=== PATIENT | male | born 1965 | race Caucasian/White ===

== ENCOUNTER 2017-02-01 18:29 | Inpatient (IN) | payer OTHER ==
[~2017-02-01] VITALS: Ht 167.6 cm; Wt 59.0 kg
[2017-02-01 19:10] VITALS: BP 130/83
--- NOTE | 2017-02-01 21:16 | NUR ---
PT TAKEN TO BED 5
[2017-02-01] MEDS ORDERED: NACL 0.9% 1,000 ML IV ONE (21:20)
--- NOTE | 2017-02-01 21:22 | NUR ---
Dr. Franco evaluating patient at bedside.
--- NOTE | 2017-02-01 21:38 | NUR ---
X-Ray at bedside.
--- NOTE | 2017-02-01 22:00 | NUR ---
PATIENT PRESENTS TO ED WITH SORE THROAT X 3 MONTHS PT IS KNOWN DIABETIC BUT DOES NOT TAKE HIS MEDS REGULARLY PT DENIES N/V/D; AAOX4 WITH EVEN AND STEADY GAIT; LUNGS CLEAR BUT PT HAS COUGH; HR EVEN AND REGULAR; PT DENIES ANY FEVER, CP, SOB, OR AT THIS TIME; PATIENT STATES PAIN OF 8/10 AT THIS TIME; VSS; PATIENT POSITIONED FOR COMFORT; HOB ELEVATED; BEDRAILS UP X2; BED DOWN. ER MD MADE AWARE OF PT STATUS.
[2017-02-01 22:06] LABS: BASOPHILS # (AUTO) 0.1 K/uL (0.00-0.22); BASOPHILS % (AUTO) 0.5 % (0.0-2.0); EOSINOPHILS # (AUTO) 0.2 K/uL (0-0.4); EOSINOPHILS % (AUTO) 1.8 % (0.0-4.0); HEMATOCRIT 35.4 % (36-52); HEMOGLOBIN 11.6 g/dL (12.0-18.0); LYMPHOCYTES % (AUTO) 9.4 % (20.5-51.1); MEAN CORPUSCULAR HEMOGLOBIN 28 pg (27-31); MEAN CORPUSCULAR HGB CONC 33 g/dL (33-37); MEAN CORPUSCULAR VOLUME 84 fL (80-94); MONOCYTES # (AUTO) 0.6 K/uL (0.8-1.0); MONOCYTES % (AUTO) 5.5 % (1.7-9.3); NEUTROPHILS # (AUTO) 8.9 K/uL (1.8-7.7); NEUTROPHILS % (AUTO) 82.8 % (42.2-75.2); PLATELET COUNT (AUTO) 334 K/uL (140-450); RED BLOOD CELL COUNT(AUTO) 4.21 MIL/uL (4.20-6.10); RED CELL DISTRIBUTION WIDTH 12.8 % (11.6-13.7); WHITE BLOOD COUNT (AUTO) 10.8 K/uL (4.8-10.8)
[2017-02-01 22:26] LABS: ALBUMIN 2.8 g/dL (3.4-5.0); ANION GAP 8.5 (8-16); CARBON DIOXIDE 29.7 mmol/L (21-32); CREATININE 1.2 mg/dL (0.6-1.3); POTASSIUM 5.2 mmol/L (3.5-5.1); TOTAL BILIRUBIN 0.4 mg/dL (0.0-1.0); TOTAL PROTEIN, SERUM 6.8 g/dL (6.4-8.2)
[2017-02-01 22:35] LABS: PARTIAL THROMBOPLASTIN TIME 23.2 secs (22-35.6)
[2017-02-01 22:39] LABS: CALCIUM 8.7 mg/dL (8.5-10.1)
--- NOTE | 2017-02-01 22:50 | NUR ---
CRITICAL LABS. DR FRIEND NOTIFIED. NEW ORDERS. PT WILL BE ADMITTED.
[2017-02-01] MEDS ORDERED: INSULIN HUMAN REGULAR 100 UNITS/ML 10 ML VIAL IVP ONE (23:00)
[2017-02-01] MEDS ORDERED: NACL 0.9% 2,000 ML IV ONE (23:00)
--- NOTE | 2017-02-01 23:30 | NUR ---
SLEEPING AT THIS TIME. NO S/S OF ANY DISCOMFORT NOTED. Addendum: 02/03/17 at 0000 by Gita Best RN CANCEL ABOVE NOTES. WRONG ENTRY.
[2017-02-01] MEDS: NACL 0.9% 1,000 ML IV SCH (23:33)
[2017-02-01] MEDS ORDERED: ONDANSETRON 4 MG/2 ML VIAL IVP PRN (23:35)
[2017-02-01] MEDS ORDERED: ACETAMINOPHEN 325 MG TAB PO PRN (23:35)
[2017-02-01] MEDS ORDERED: HYDROcodone/APAP 5/325 MG 1 TAB TAB PO PRN (23:35)
[2017-02-01] MEDS ORDERED: DEXTROSE 50% 50 ML SYR IVP PRN (23:35)
[2017-02-01] MEDS ORDERED: LORazepam 2 MG/ML VIAL IVP PRN (23:35)
[2017-02-01] MEDS ORDERED: hydrALAZINE 20 MG/ML VIAL IVP PRN (23:40)
--- NOTE | 2017-02-02 00:39 | NUR ---
Patient will be admitted to care of DR HANEY. Admited to M/S. Will go to room 119b. Belongings list completed. Report to EMI LEWIS.
[2017-02-02 01:00] VITALS: BP 170/100
--- NOTE | 2017-02-02 01:00 | NUR ---
RECEIVED PT FROM ER VIA WHEELCHAIR, PT CINDY AAOX4 AMBULATORY IV ON RT AC INFUSING WELL DENIES ANYPAIN OR DISCOMFORT, BILATERAL LOWER EXTREMITIES WITH DISCOLORATION AND DRY OLD SCABS PT IS ;ORIENTED TOTHE FLOOR CALL LLIGHT WITHIN REACH
[2017-02-02] MEDS ORDERED: PNEUMOCOCCAL VACCINE 23 MCG/0.5 ML VIAL IMVAC PRN (01:15)
--- NOTE | 2017-02-02 04:00 | NUR ---
SPONGE BATH GIVEN LINEN CHANGED WILL BE MONITORING HIGH BP ON TELMETRY SR
[2017-02-02] MEDS ORDERED: cloNIDine 0.1 MG TAB PO PRN (05:05)
[2017-02-02 05:07] VITALS: BP 165/98
[2017-02-02 05:21] LABS: BASOPHILS # (AUTO) 0.1 K/uL (0.00-0.22); BASOPHILS % (AUTO) 0.5 % (0.0-2.0); EOSINOPHILS # (AUTO) 0.2 K/uL (0-0.4); EOSINOPHILS % (AUTO) 1.4 % (0.0-4.0); HEMATOCRIT 31.7 % (36-52); HEMOGLOBIN 10.2 g/dL (12.0-18.0); LYMPHOCYTES # (AUTO) 1.7 K/uL (2.0-11.5); LYMPHOCYTES % (AUTO) 14.3 % (20.5-51.1); MEAN CORPUSCULAR HEMOGLOBIN 27 pg (27-31); MEAN CORPUSCULAR HGB CONC 32 g/dL (33-37); MEAN CORPUSCULAR VOLUME 84 fL (80-94); MONOCYTES # (AUTO) 0.7 K/uL (0.8-1.0); MONOCYTES % (AUTO) 5.8 % (1.7-9.3); NEUTROPHILS # (AUTO) 9.1 K/uL (1.8-7.7); PLATELET COUNT (AUTO) 335 K/uL (140-450); RED BLOOD CELL COUNT(AUTO) 3.79 MIL/uL (4.20-6.10); WHITE BLOOD COUNT (AUTO) 11.8 K/uL (4.8-10.8)
[2017-02-02 05:42] LABS: ALBUMIN 2.3 g/dL (3.4-5.0); ANION GAP 9.6 (8-16); CALCIUM 7.8 mg/dL (8.5-10.1); CARBON DIOXIDE 28.8 mmol/L (21-32); CREATININE 0.8 mg/dL (0.6-1.3); MAGNESIUM 1.8 mg/dL (1.8-2.4); POTASSIUM 3.4 mmol/L (3.5-5.1); TOTAL BILIRUBIN 0.3 mg/dL (0.0-1.0); TOTAL PROTEIN, SERUM 5.8 g/dL (6.4-8.2)
[2017-02-02 06:16] VITALS: BP 148/83
[2017-02-02] MEDS: BLOOD GLUCOSE MONITORING 1 DEV DEV FS SCH ×4 (06:36→20:59)
[2017-02-02] MEDS: INSULIN LISPRO SLIDING SCALE 100 UNITS/ML VIAL SUBQ PRN ×4 (06:37→21:00)
--- NOTE | 2017-02-02 06:45 | NUR ---
BLOOD SUGAR TEST 361 WAS COVERAGE WITH HUMALOG SUBQ 10 UNITS ON LEFT ARM
--- NOTE | 2017-02-02 07:30 | NUR ---
REPORT RECEIVED FROM TAIL EDGER, CARE ASSUMED AT THIS TIME, PT SLEEPING QUIETLY, AROUSES TO VOICE, RESP EVEN UNLABORED ON ROOM AIR IN NAD, SKIN WARM DRY COLOR WNL, IVF INFUSING SITE CLEAR, PLAN OF CARE REVIEWED, PT DENIES ANY PAIN OR DISCOMFORT, PT ON OFFICE WORKER, CALL VOGEL WITHIN REACH, BED LOCKED IN LOW POSTIION, SIDE RAILS UP X2, NO IMMEDIATE NEEDS IDENTIFIED AT THIS TIME, WILL CONTINUE TO MONITOR.
[2017-02-02 08:00] VITALS: BP 121/78
[2017-02-02] MEDS ORDERED: ENOXAPARIN 40 MG/0.4 ML SYR SUBQ SCH (09:00)
[2017-02-02] MEDS: ENOXAPARIN 40 MG/0.4 ML SYR SUBQ SCH (09:09)
--- NOTE | 2017-02-02 09:22 | NUR ---
CM NOTE INITIAL REVIEW SENT TO [facility] FAX# [phone] PH# FEBRUARY [phone] VIRGIE [phone]
[2017-02-02] MEDS: NACL 0.9% 1,000 ML IV SCH ×2 (09:33→19:33)
--- NOTE | 2017-02-02 09:45 | NUR ---
PT RESTING QUIETLY IN NAD, RESP EVEN UNLABORED, IVF CONTINUES, SITE CLEAR, EXTRA BLANKET PROVIDED PER PT REQUEST, DENIES OTHER NEEDS AT THIS TIME, CALL VOGEL WITHIN REACH, SIDE RAILS UP X2, BED LOCKED IN LOW POSITION, WILL CONTINUE TO MONITOR.
--- NOTE | 2017-02-02 09:59 | NUR ---
PATIENT HAS BEEN SCREENED AND CATEGORIZED MODERATE NUTRITION RISK. PATIENT WILL BE SEEN WITHIN 3-5 DAYS OF ADMISSION. 02/04/17-02/06/[address]
[2017-02-02 12:00] VITALS: BP 150/98
--- NOTE | 2017-02-02 12:45 | NUR ---
PT SITTING UP IN BED IN NAD, EATING LUNCH, DENIES PAIN OR DISCOMFORT, RESP EVEN UNLABORED, SPEAKING TO FRIEND AT BEDSIDE IN NAD, QUESTIONS REGARDING PLAN OF CARE ASKED AND ANSWERED, PT VERBALIZED FULL UNDERSTANDING, IVF INFUSING, SITE CLEAR, PT DENIES ANY OTHER IMMEDIATE NEEDS, CALL VOGEL AT BEDSIDE, BED LOCKED IN LOW POSITION, WILL CONTINUE TO MONITOR.
--- NOTE | 2017-02-02 15:04 | NUR ---
PT SLEEPING QUIETLY IN NAD, RESP EVEN UNLABORED SKIN WARM DRY COLOR WNL, AROUSES EASILY WITH VOICE, DIABETES EDUCATION HANDOUT PRINTED IN [place] AND GIVEN TO PT FOR RESOURCES, CALL VOGEL WITHIN REACH, SIDE RAILS UP X2, BED LOCKED IN LOW POSITION, WILL CONTINUE TO MONITOR.
[2017-02-02 16:00] VITALS: BP 145/94
[2017-02-02] MEDS: metFORMIN 850 MG TAB PO SCH (17:01)
--- NOTE | 2017-02-02 17:42 | NUR ---
PT VOMITED X1 SMALL EMESIS, PT STATES HE FEELS OK NOW, OFFERED ZOFRAN BUT PT DECLINED AT THIS TIME, WILL CONTINUE TO MONITOR.
--- NOTE | 2017-02-02 19:22 | NUR ---
REPORT GIVEN TO [employer], PT IN STABLE CONDITION.
--- NOTE | 2017-02-02 19:30 | NUR ---
RECEIVED PT IN STABLE CONDITION FROM AM NURSE. AWAKE, ALERT AND ORIENTED X4. ALBANIAN SPEAKING. MED SURG PT. AMBULATORY TO BR. WITH IVF INFUSING WELL ON THE RT AC#20. CLEAR AND PATENT. PLAN OF CARE DISCUSSED AND VERBALIZED UNDERSTANDING. CALL LIGHT PLACED WITHIN EASY REACH. WILL CONTINUE TO MONITOR.
--- NOTE | 2017-02-02 21:00 | NUR ---
BLOOD SUGAR WAS CHECKED RESULT 290. INSULIN COVERAGE GIVEN SUBQ. PROVIDED WITH HS SNACK.
--- NOTE | 2017-02-02 23:00 | NUR ---
SLEEPING WELL. NO S/S OF ANY DISCOMFORT NOTED.
[2017-02-03] MEDS: NACL 0.9% 1,000 ML IV SCH ×4 (00:24→22:07)
[2017-02-03 00:29] VITALS: BP 128/74
--- NOTE | 2017-02-03 01:30 | NUR ---
MADE ROUNDS. PT IS ASLEEP. NO S/S OF ANY DISCOMFORT NOTED.
--- NOTE | 2017-02-03 05:00 | NUR ---
SLEEPING AT THIS TIME. NO S/S OF ANY DISCOMFORT NOTED.
[2017-02-03] MEDS: BLOOD GLUCOSE MONITORING 1 DEV DEV FS SCH ×4 (06:01→20:42)
[2017-02-03] MEDS: INSULIN LISPRO SLIDING SCALE 100 UNITS/ML VIAL SUBQ PRN ×4 (06:02→20:49)
[2017-02-03 06:04] LABS: BASOPHILS % (AUTO) 0.4 % (0.0-2.0); EOSINOPHILS # (AUTO) 0.2 K/uL (0-0.4); EOSINOPHILS % (AUTO) 2.1 % (0.0-4.0); HEMATOCRIT 33.9 % (36-52); LYMPHOCYTES # (AUTO) 1.6 K/uL (2.0-11.5); LYMPHOCYTES % (AUTO) 17.7 % (20.5-51.1); MEAN CORPUSCULAR HEMOGLOBIN 27 pg (27-31); MEAN CORPUSCULAR HGB CONC 32 g/dL (33-37); MEAN CORPUSCULAR VOLUME 83 fL (80-94); MONOCYTES # (AUTO) 0.3 K/uL (0.8-1.0); MONOCYTES % (AUTO) 3.4 % (1.7-9.3); NEUTROPHILS # (AUTO) 7.1 K/uL (1.8-7.7); NEUTROPHILS % (AUTO) 76.4 % (42.2-75.2); PLATELET COUNT (AUTO) 327 K/uL (140-450); RED BLOOD CELL COUNT(AUTO) 4.06 MIL/uL (4.20-6.10); RED CELL DISTRIBUTION WIDTH 13.5 % (11.6-13.7); WHITE BLOOD COUNT (AUTO) 9.2 K/uL (4.8-10.8)
--- NOTE | 2017-02-03 07:20 | NUR ---
ENDORSED PT IN STABLE CONDITION TO AM NURSE.
[2017-02-03 07:21] LABS: CALCIUM 8.2 mg/dL (8.5-10.1); CARBON DIOXIDE 27.3 mmol/L (21-32); POTASSIUM 4.3 mmol/L (3.5-5.1)
--- NOTE | 2017-02-03 07:21 | NUR ---
PT AWAKE AND ALERT, NO SIGNS OF ACUTE DISTRESS, BREATHING EVEN AND UNLABORED BILATERALLY ON ROOM AIR, BOWEL SOUNDS ACTIVE IN ALL 4 QUADRANTS, AMBULATORY WITH BRP, SKIN INTACT, YAKUT SPEAKING, IV PATENT WITHOUT REDNESS, NO COMPLAINT OF PAIN, CALL LIGHT WITHIN REACH, BED IN LOW POSITION WITH BILATERAL HALF SIDE RAILS UP.
[2017-02-03 07:22] LABS: CREATININE 0.8 mg/dL (0.6-1.3)
[2017-02-03 08:00] VITALS: BP 157/96
--- NOTE | 2017-02-03 08:47 | NUR ---
CM NOTE CONCURRENT REVIEW SENT TO [facility] FAX# [phone] PH# FEBRUARY [phone]
[2017-02-03] MEDS: AZITHROMYCIN 250 MG TAB PO SCH (09:31)
[2017-02-03] MEDS: LISINOPRIL 10 MG TAB PO SCH (09:31)
[2017-02-03] MEDS: metFORMIN 850 MG TAB PO SCH ×2 (09:31→16:42)
[2017-02-03] MEDS: ENOXAPARIN 40 MG/0.4 ML SYR SUBQ SCH (09:32)
--- NOTE | 2017-02-03 15:10 | NUR ---
LUCY PATEL SPOKE WITH THE PATIENT BEDSIDE WITH NURSE CHARLES TO TRANSLATE AND HE SAID HE DOES NOT HAVE A PCP. SPOKE WITH LUCY [facility] PH# [phone] AND SHE SAID THIS PATIENT IS ASSIGNED TO DR. BECCA MONTANO # [phone]. CALLED THE # [phone] TO SCHEDULE PATIENT FOR OUTPATIENT APPOINTMENT AND SPOKE WITH PERRI WHO SAID THAT BECAUSE THIS IS A NEW PATIENT, THE EARLIEST DATE THIS PATIENT CAN BE SEEN IS ON MARCH 23 3PM AT THE CLINIC IN [address] [place] [address]. GAVE THE INFORMATION TO THE PATIENT. LUCY [facility] AWARE.
--- NOTE | 2017-02-03 15:54 | NUR ---
SS NOTE: I RECEIVED A CALL FROM [facility] CM [facility]. SHE STATED THAT SHE WAS ABLE TO OBTAIN A SOONER APPT FOR PT WITH DR. BECCA MONTANO P: [phone] FOR 02/17/17 AT 0930 AT [address] [facility]. SHE ALSO STATED THAT PT WILL NEED TO BRING HIS SOCIAL SECURITY CARD AND D.C INSTRUCTIONS. I SPOKE WITH PT BEDSIDE WITH AIME POLLARD TO TRANSLATE AND GAVE THE PRINTED INFORMATION TO THE PATIENT.
[2017-02-03 16:00] VITALS: BP 122/77
--- NOTE | 2017-02-03 19:23 | NUR ---
PT AWAKE AND ALERT, NO SIGNS OF ACUTE DISTRESS. BED IN LOW POSITION WITH BILATERAL HALF SIDE RAILS UP, CALL LIGHT WITHIN REACH. GAVE REPORT TO PREPARER RN FOR CONTINUITY OF CARE.
--- NOTE | 2017-02-03 19:24 | NUR ---
RECEIVED REPORT, ASSUMED CARE. PT AAOX4. RESPIRATION EVEN AND UNLABORED. NO C/O PAIN AT THIS TIME. NO S/S OF RESPIRATORY DISTRESS AT THIS TIME. IV ACCESS TO RT AC #22, INFUSING NS @ 100ML/HR. NO S/S OF INFILTRATION. CALL LIGHT WITHIN EASY REACH. WILL CONTINUE TO MONITOR.
--- NOTE | 2017-02-03 22:45 | NUR ---
ROUNDS MADE, PT SOUND ASLEEP AT THIS TIME,EASILY AROUSABLE. REGULAR BREATHING PATTERN,NO S/S OF RESP DISTRESS. ALL NEEDS ANTICIPATED. CALL LIGHT KEPT WITHIN EASY REACH. WILL CONTINUE TO MONITOR.
[2017-02-04] VITALS: BP 112/71
--- NOTE | 2017-02-04 00:30 | NUR ---
PT REMAINS ASLEEP WITH PERIODS OF AWAKENING, GOING TO THE BATHROO. REGULAR BREATHING PATTERN,NO S/S OF RESP DISTRESS. ALL NEEDS ANTICIPATED. CALL LIGHT KEPT WITHIN EASY REACH. WILL CONTINUE TO MONITOR.
--- NOTE | 2017-02-04 03:00 | NUR ---
PT AWAKE AT THIS TIME, REQUESTS FOR SNACKS AND COFFEE. EXPLAINED TO PT RE: COMPLIANCE WITH HIS DIET DUE TO UNCONTROLLED DIABETES. EXPLAINED RISKS/BENEFITS, PT VERBALIZED UNDERSTANDING, HOWEVER, HE'S IRRITABLE AND UPSET. WILL CONTINUE TO EDUCATE PT RE: COMPLIANCE WITH DIET, TX PLAN.
[2017-02-04] MEDS: BLOOD GLUCOSE MONITORING 1 DEV DEV FS SCH (06:40)
[2017-02-04] MEDS: INSULIN LISPRO SLIDING SCALE 100 UNITS/ML VIAL SUBQ PRN (06:41)
[2017-02-04] MEDS ORDERED: LISI10TA11 PO (07:25)
[2017-02-04] MEDS ORDERED: METF850T PO (07:25)
[2017-02-04] MEDS ORDERED: SITA50TA3 PO (07:25)
--- NOTE | 2017-02-04 07:25 | NUR ---
PT AWAKE, VERBALLY RESPONSIVE. NO C/O PAIN AT THIS TIME. ENDORSED TO NEXT SHIFT FOR CONTINUITY OF CARE. PT IN STABLE CONDITION.
--- NOTE | 2017-02-04 07:26 | NUR ---
RECEIVED REPORT FROM THE FLASK CARRIER NURSE AT BEDSIDE FOR CONTINUITY OF CARE. PT IS AWAKE AND ALERT. INTRODUCED MYSELF AND UPDATED THE BOARD. PT HAS HIS IV ON R AC 20G, NS INFUSING AT 100ML. NO SIGNS OF DISTRESS. DENIES SORE THROAT, OR ANY PAIN. PER MD, PT IS TO BE DISCHARGED TODAY. WILL START DISCHARGE PROCESS.
--- NOTE | 2017-02-04 08:00 | NUR ---
PT IS EATING BREAKFAST. IV PUMP BEEPING. I D/C'D HIS IV, SO THAT HE CAN EAT. PT SAID ONCE HE IS DONE WITH BREAKFAST HE WOULD LIKE TO LEAVE. ASKED PT ABOUT HIS RIDE. HE DOESN'T HAVE ONE. HE WILL TAKE A BUS HOME. WILL GET HIS DC PAPERS READY.
[2017-02-04] MEDS: AZITHROMYCIN 250 MG TAB PO SCH (08:36)
[2017-02-04] MEDS: LISINOPRIL 10 MG TAB PO SCH (08:36)
[2017-02-04] MEDS: metFORMIN 850 MG TAB PO SCH (08:36)
[2017-02-04] MEDS: ENOXAPARIN 40 MG/0.4 ML SYR SUBQ SCH (08:37)
--- NOTE | 2017-02-04 08:49 | NUR ---
ADMINISTERED MORNING MEDS. PT TOLERATED WELL. GAVE PT D/C INSTRUCTIONS. ANSWERED ALL QUESTIONS. PT SIGNED ALL APPROPRIATE DOC. REMOVED IV, CANNULA INTACT. NO BLEEDING NOTED. REMOVED ALL ID BANDS. EDUCATED PT ABOUT THE IMPORTANCE OF FOLLOWING UP WITH MD, START TAKING THE RX DIRECTED. PT VERBALIZED UNDERSTANDING. PT WILL GET DRESSED AND GATHER HIS PERSONAL BELONGINGS. HE WILL LET US KNOW WHEN HE IS READY TO LEAVE. WE WILL WHEEL HIM OUT.
--- NOTE | 2017-02-04 09:35 | NUR ---
WHEELED PT OUT IN A WHEELCHAIR. PT'S AND BABY ACCOMPANIED PT. PERSONAL BELONGINGS WITH PT. PT IS IN STABLE CONDITION.
--- NOTE | 2017-02-04 13:48 | NUR ---
CM NOTE CONCURRENT REVIEW SENT TO [facility] FAX# [phone] PH# FEBRUARY [phone]
== END 2017-02-04 09:35 | disposition home or self-care (01) | DRG 420 ==
LOC: MED 18:29 → MTU 02-02 00:30
PROVIDERS: ADMIT Hospitalist; ATTEND Hospitalist
DX: E11.65 Type 2 diabetes mellitus with hyperglycemia (principal); E11.00 Type 2 diabetes mellitus with hyperosmolarity without nonketotic hyperglycemic-hyperosmolar coma (NKHHC); I10 Essential (primary) hypertension; J40 Bronchitis, not specified as acute or chronic
CPT/HCPCS: 36415; 71010; 80048; 80053; 82948; 83735; 84484; 85025; 85610; 85730; 87081; 90732; 93005; 96374; 99285; J1650; J1815; J2405; J7030; Q0092